=== PATIENT | male | born 1965 | race Two or more races ===

== ENCOUNTER 2022-08-03 12:48 | Inpatient (IN) | payer BC ==
[~2022-08-03] VITALS: Ht 167.6 cm; Wt 105.2 kg
[2022-08-03 14:21] LABS: Albumin 4.2 g/dL (3.4-5.0); Calcium 8.5 mg/dL (8.5-10.1); Potassium 3.8 mmol/L (3.5-5.1)
[2022-08-03 14:25] LABS: BUN/Creatinine Ratio 14.4; Total Protein 7.8 g/dL (6.4-8.2)
[2022-08-03 14:33] LABS: Basophils # (auto) 0 10 ^3/uL (0-0.2); Basophils % (auto) 0.5 % (0.0-2.0); Eosinophils # (auto) 0 10 ^3/uL (0-0.8); Hematocrit 46.9 % (41.0-53.0); Lymphocytes % (auto) 13.6 % (10.0-50.0); Mean Corpuscular Hemoglobin 33.6 pg (28.0-32.0); Mean Corpuscular Hgb Conc. 36.3 g/dL (32.0-36.0); Mean Corpuscular Volume 92.6 fL (80.0-100.0); Monocytes # (auto) 0.2 10 ^3/uL (0-1.3); Monocytes % (auto) 2.7 % (0.0-12.0); Neutrophils # (auto) 6.3 10 ^3/uL (1.6-8.6); Neutrophils % (auto) 83.2 % (37.0-80.0); Red Blood Cells 5.06 10^6/uL (4.5-5.90); Red Cell Distribution Width 12.5 % (11.8-14.3); White Blood Cell 7.6 10^3/uL (4.4-10.8)
[2022-08-03] MEDS ORDERED: MECLIZINE HCL 25 MG TAB PO ONE (17:30)
[2022-08-03] MEDS ORDERED: ASPirin 325 MG TAB PO ONE (18:45)
[2022-08-03] MEDS ORDERED: ONDANSETRON HCL 4 MG/2 ML VIAL IV PRN (22:00)
[2022-08-03] MEDS ORDERED: NITROGLYCERIN 0.4 MG SL TAB SL PRN (22:00)
[2022-08-03] MEDS ORDERED: MORPHINE SULFATE INJ 2 MG/ml SYRG IV PRN (22:00)
[2022-08-03] MEDS ORDERED: SODIUM CHLORIDE 0.9% 1,000 ML IV SCH (22:00)
[2022-08-03 22:12] LABS: Cholesterol 174 mg/dL (< 200); Triglycerides 198 mg/dL (< 150)
[2022-08-03 22:15] LABS: HDL Cholesterol 38 mg/dL (40-59); LDL Cholesterol 105 mg/dL (< 100)
[2022-08-03 22:31] LABS: INR 1.09 (0.9-1.15); Partial Thromboplastin Time 26.4 sec (24.6-33.4)
[2022-08-04 06:14] LABS: Basophils # (auto) 0 10 ^3/uL (0-0.2); Basophils % (auto) 0.4 % (0.0-2.0); Eosinophils # (auto) 0 10 ^3/uL (0-0.8); Eosinophils % (auto) 0.2 % (0.0-7.0); Hematocrit 46.5 % (41.0-53.0); Hemoglobin 16.6 g/dL (13.5-17.5); Lymphocytes # (auto) 2.1 10 ^3/uL (0.4-5.4); Lymphocytes % (auto) 21.7 % (10.0-50.0); Mean Corpuscular Hemoglobin 33.5 pg (28.0-32.0); Mean Corpuscular Hgb Conc. 35.6 g/dL (32.0-36.0); Monocytes # (auto) 1.3 10 ^3/uL (0-1.3); Monocytes % (auto) 13.1 % (0.0-12.0); Neutrophils # (auto) 6.3 10 ^3/uL (1.6-8.6); Neutrophils % (auto) 64.6 % (37.0-80.0); Red Blood Cells 4.95 10^6/uL (4.5-5.90); Red Cell Distribution Width 13.1 % (11.8-14.3); White Blood Cell 9.8 10^3/uL (4.4-10.8)
[2022-08-04 06:27] LABS: Albumin 3.7 g/dL (3.4-5.0); Calcium 8.9 mg/dL (8.5-10.1); Potassium 3.5 mmol/L (3.5-5.1)
[2022-08-04 06:29] LABS: BUN/Creatinine Ratio 18.4
[2022-08-04 06:31] LABS: Total Protein 7.9 g/dL (6.4-8.2)
[2022-08-04 08:48] LABS: Hepatitis B Surface Antibody Negative (Negative)
[2022-08-04 09:25] LABS: Hepatitis A Total Antibody Positive (Negative)
[2022-08-04] MEDS ORDERED: ENOXAPARIN SOD 40 MG/0.4 ML SYRINGE SC SCH (10:00)
[2022-08-04 10:41] LABS: Hepatitis C Antibody Negative (Negative)
[2022-08-04 19:31] VITALS: BP 135/76
[2022-08-04 22:00] VITALS: BP 135/76
[2022-08-04] MEDS: MECLIZINE HCL 25 MG TAB PO SCH (22:07)
[2022-08-05 02:27] LABS: Urine Amorphous Crystal FEW /hpf (None Seen); Urine Bacteria NONE SEEN /hpf (None Seen); Urine Blood Negative /uL (Negative); Urine Specific Gravity 1.015 (1.001-1.035); Urine WBC 1 /hpf (0 - 3)
[2022-08-05 02:34] LABS: Amphetamine Screen, Urine NEGATIVE (NEGATIVE); Barbiturate Scree,Urine NEGATIVE (NEGATIVE); Benzodiazephine Screen, Urine NEGATIVE (NEGATIVE); Cannabinoid Screen, Urine NEGATIVE (NEGATIVE); Cocaine Screen, Urine NEGATIVE (NEGATIVE); Opiate Scree,Urine NEGATIVE (NEGATIVE); Phencyclidine Screen, Urine NEGATIVE (NEGATIVE)
[2022-08-05 02:57] LABS: Alcohol, Urine < 3.0 mg/dL (0-10)
[2022-08-05 05:00] VITALS: BP 125/77
[2022-08-05] MEDS: MECLIZINE HCL 25 MG TAB PO SCH ×3 (05:50→20:55)
[2022-08-05 09:00] VITALS: BP 132/85
[2022-08-05] MEDS: PANTOPRAZOLE 40 MG/10 ML VIAL INJ IV SCH ×2 (09:40→10:00)
[2022-08-05 13:00] VITALS: BP 139/87
[2022-08-05 16:55] VITALS: BP 121/85
[2022-08-05 22:11] VITALS: BP 128/87
[2022-08-06 04:49] VITALS: BP 123/91
[2022-08-06] MEDS: MECLIZINE HCL 25 MG TAB PO SCH ×2 (05:24→14:00)
[2022-08-06 09:00] VITALS: BP_SYST 136; BP_SYST 137; BP_DIAS 90; BP_DIAS 96
[2022-08-06] MEDS: PANTOPRAZOLE 40 MG/10 ML VIAL INJ IV SCH (10:11)
[2022-08-06] MEDS ORDERED: MECL25TA18 PO (12:58)
[2022-08-06 13:00] VITALS: BP 134/90
[2022-08-06 13:50] VITALS: BP 134/90
== END 2022-08-06 14:39 | disposition home health service (06) | DRG 149 ==
LOC: ER 12:48 → TELE 21:53 → TELE-EAST 08-04 18:36
PROVIDERS: ADMIT Registered Nurse; ATTEND Nurse Practitioner Acute Care
DX: H81.10 Benign paroxysmal vertigo, unspecified ear (principal); E78.5 Hyperlipidemia, unspecified; E66.9 Obesity, unspecified; I10 Essential (primary) hypertension; R26.0 Ataxic gait; R74.8 Abnormal levels of other serum enzymes; R55 Syncope and collapse; Z68.37 Body mass index [BMI] 37.0-37.9, adult; Z88.0 Allergy status to penicillin; Z20.822 Contact with and (suspected) exposure to COVID-19
CPT/HCPCS: 36415; 70450; 70551; 71045; 76705; 80053; 80061; 80307; 81001; 82962; 83036; 84443; 84484; 85025; 85610; 85652; 85730; 86141; 86704; 86706; 86708; 86803; 87340; 87426; 93005; 93306; 93886; 99291; C9113; G0378